=== PATIENT | male | born 1930 | race Caucasian/White ===

== ENCOUNTER 2020-08-10 15:21 | Inpatient (IN) | payer MEDICARE, OTHER ==
[~2020-08-10] VITALS: Ht 188 cm; Wt 80.1 kg
[2020-08-10 15:50] LABS: BASOPHILS % (AUTO) 0.3 % (0.0-5.0); EOSINOPHILS % (AUTO) 1.2 % (0.0-8.0); HEMATOCRIT 40.2 % (42-54); LYMPHOCYTES % (AUTO) 11.6 % (21.0-51.0); MEAN CORPUSCULAR HEMOGLOBIN 29.3 pg (27.0-33.0); MEAN CORPUSCULAR HGB CONC 31.1 g/dL (32.0-36.0); MEAN CORPUSCULAR VOLUME 94.4 fL (79-99); MONOCYTES % (AUTO) 11.9 % (3.0-13.0); PLATELET COUNT (AUTO) 175 K/uL (130-400); RED BLOOD CELL COUNT(AUTO) 4.26 MIL/uL (4.50-6.20); RED CELL DISTRIBUTION WIDTH 14.6 % (11.0-15.5); WHITE BLOOD COUNT (AUTO) 11.5 K/uL (4.8-10.8)
[2020-08-10 16:03] LABS: PROTHROMBIN TIME 10.9 SEC (9.6-11.6)
[2020-08-10 16:04] LABS: CREATININE 2.2 mg/dL (0.5-1.5); POTASSIUM 4.3 mmol/L (3.5-5.1)
[2020-08-10 16:09] LABS: ALBUMIN 3.3 g/dL (3.5-5.0); BILIRUBIN,TOTAL 0.4 mg/dL (0.2-1.0); TOTAL PROTEIN, SERUM 7.3 g/dL (6.0-8.3)
[2020-08-10 17:30] LABS: APPEARANCE,URINE Cloudy (CLEAR); BILIRUBIN,URINE Negative (NEGATIVE); COLOR,URINE Yellow (YELLOW); GLUCOSE, URINE (UA) Negative (NEGATIVE); KETONES,URINE Negative (NEGATIVE); LEUKOCYTE ESTERASE ,URINE Negative (NEGATIVE); NITRATE,URINE Negative (NEGATIVE); OCCULT BLOOD,URINE Moderate (NEGATIVE); PROTEIN,URINE POS 1+ mg/dL (NEGATIVE); UROBILINOGEN,URINE 0.2 mg/dL (0.2-1.0)
[2020-08-10 17:46] LABS: AMORPHOUS SEDIMENT,UR Few /LPF (None Seen); BACTERIA,URINE Rare /HPF (None Seen); HYALINE CASTS, URINE 0-1 /LPF (0-1 /LPF); SQUAMOUS EPITHELIAL CELL,UR None Seen /HPF (0-2); WBC,URINE 0-1 /HPF (0-1)
[2020-08-10] MEDS ORDERED: ASPIRIN 325 MG TABLET ONE (18:53)
[2020-08-10] MEDS ORDERED: NITROGLYCERIN 1GM OINT 1 INCH/1GM TD ONE (18:53)
[2020-08-10] MEDS ORDERED: ENOXAPARIN SODIUM 80 MG/0.8 ML SQ ONE (18:53)
[2020-08-10] MEDS ORDERED: NITROGLYCERIN 0.4 MG SL TAB SL PRN (21:00)
[2020-08-10] MEDS ORDERED: DiphenhydrAMINE HCL 50 MG/ML VIAL IV PRN (21:00)
[2020-08-10] MEDS ORDERED: DIPHENHYDRAMINE HCL 25 MG CAPSULE PO PRN (21:00)
[2020-08-10] MEDS ORDERED: LACTULOSE 20 GM/30 ML UDCUP PO PRN (21:00)
[2020-08-10] MEDS ORDERED: ONDANSETRON 4MG INJ IV PRN (21:00)
[2020-08-10] MEDS ORDERED: MAG/ALUM/SIMETH 30 ML UDCUP PO PRN (21:00)
[2020-08-10] MEDS ORDERED: ACETAMINOPHEN 325 MG TAB PO PRN ×2 (21:00)
[2020-08-10] MEDS ORDERED: FAMOTIDINE 20MG TAB ONE (22:43)
[2020-08-10] MEDS ORDERED: HEPARIN 5,000 UNIT VIAL ONE (22:43)
[2020-08-10] MEDS ORDERED: DOXYCYCLINE 100MG+NS 250ML 250 ML IV ONE (22:44)
[2020-08-10] MEDS ORDERED: CEFTRIAXONE 1G VIAL ONE (22:44)
[2020-08-10] MEDS ORDERED: METOPROLOL TARTRATE 25 MG TAB ONE (22:44)
[2020-08-11 01:26] LABS: AMPHET/METH SCREEN,URINE NEGATIVE (NEGATIVE); BARBITURATE SCREEN, URINE NEGATIVE (NEGATIVE); BENZODIAZEPINES SCREEN,URINE NEGATIVE (NEGATIVE); CANNABINOID SCREEN,URINE NEGATIVE (NEGATIVE); COCAINE SCREEN,URINE NEGATIVE (NEGATIVE); OPIATE SCREEN,URINE NEGATIVE (NEGATIVE); PHENCYCLIDINE SCREEN,URINE NEGATIVE (NEGATIVE)
[2020-08-11 04:01] LABS: PHOSPHORUS 3.4 mg/dL (2.5-4.9); THYROID STIMULATING HORMONE 1.29 uIU/mL (0.36-3.74)
[2020-08-11 04:03] LABS: AMMONIA < 10 umol/L (11-32)
[2020-08-11] MEDS ORDERED: HEPARIN 5,000 UNIT VIAL ONE (07:47)
[2020-08-11] MEDS ORDERED: ASPIRIN 325 MG TABLET ONE (07:47)
[2020-08-11] MEDS ORDERED: DOXYCYCLINE 100MG+NS 250ML 250 ML IV ONE ×2 (07:48→23:50)
[2020-08-11] MEDS ORDERED: METOPROLOL TARTRATE 25 MG TAB ONE (07:48)
[2020-08-11] MEDS ORDERED: ASPIRIN 325MG EC TAB PO SCH (09:00)
[2020-08-11] MEDS: DOXYCYCLINE 100MG+NS 250ML 250 ML IV SCH ×2 (09:00→21:00)
[2020-08-11 09:22] LABS: APPEARANCE,URINE CLEAR (CLEAR); BILIRUBIN,URINE NEGATIVE (NEGATIVE); COLOR,URINE YELLOW (YELLOW); GLUCOSE, URINE (UA) NEGATIVE (NEGATIVE); KETONES,URINE NEGATIVE (NEGATIVE); LEUKOCYTE ESTERASE ,URINE NEGATIVE (NEGATIVE); NITRATE,URINE NEGATIVE (NEGATIVE); OCCULT BLOOD,URINE SMALL (NEGATIVE); PH,URINE 5.5 (5.0-8.0); PROTEIN,URINE 30 mg/dL (NEGATIVE); UROBILINOGEN,URINE 0.2 mg/dL (0.2-1.0)
[2020-08-11 09:26] LABS: BASOPHILS % (AUTO) 0.2 % (0.0-5.0); HEMATOCRIT 40.4 % (42-54); LYMPHOCYTES % (AUTO) 4.4 % (21.0-51.0); MEAN CORPUSCULAR HEMOGLOBIN 29.5 pg (27.0-33.0); MEAN CORPUSCULAR HGB CONC 31.4 g/dL (32.0-36.0); MEAN CORPUSCULAR VOLUME 93.7 fL (79-99); MONOCYTES % (AUTO) 11.2 % (3.0-13.0); NEUTROPHILS % (AUTO) 82.8 % (40.0-77.0); PLATELET COUNT (AUTO) 172 K/uL (130-400); RED BLOOD CELL COUNT(AUTO) 4.31 MIL/uL (4.50-6.20); RED CELL DISTRIBUTION WIDTH 14.2 % (11.0-15.5); WHITE BLOOD COUNT (AUTO) 10.5 K/uL (4.8-10.8)
[2020-08-11 09:38] LABS: ALBUMIN 3.1 g/dL (3.5-5.0); BILIRUBIN,TOTAL 0.4 mg/dL (0.2-1.0); POTASSIUM 3.7 mmol/L (3.5-5.1); TOTAL PROTEIN, SERUM 7.1 g/dL (6.0-8.3)
[2020-08-11 09:40] LABS: WBC,URINE None Seen /HPF (0-1)
[2020-08-11 09:41] LABS: BACTERIA,URINE Few /HPF (None Seen); SQUAMOUS EPITHELIAL CELL,UR 0-2 /HPF (0-2)
[2020-08-11 16:00] VITALS: BP 161/80
[2020-08-11] MEDS ORDERED: ASPI-1012 PO (17:00)
[2020-08-11] MEDS ORDERED: LEVO125C4 PO (17:00)
[2020-08-11] MEDS ORDERED: NIAC500T22 PO (17:00)
[2020-08-11] MEDS ORDERED: PRAV40TA3 PO (17:00)
[2020-08-11] MEDS ORDERED: SAW160CA3 PO (17:00)
[2020-08-11] MEDS ORDERED: METF-526 PO (17:00)
[2020-08-11] MEDS ORDERED: OMEP20TA25 PO (17:00)
[2020-08-11 20:00] VITALS: BP 138/78
[2020-08-11] MEDS: METOPROLOL TARTRATE 25 MG TAB PO SCH ×2 (21:00→21:21)
[2020-08-11] MEDS: FAMOTIDINE 20MG TAB PO SCH ×2 (21:00→21:21)
[2020-08-11] MEDS: HEPARIN 5,000 UNIT VIAL SQ SCH ×2 (21:00→21:26)
[2020-08-11] MEDS: CEFTRIAXONE 1G VIAL IV SCH ×2 (21:00→21:21)
[2020-08-12] VITALS: BP 155/83
[2020-08-12] MEDS ORDERED: LORAZEPAM 2 MG/ML 1 ML VIAL ONE (00:05)
[2020-08-12] MEDS: DOXYCYCLINE 100MG+NS 250ML 250 ML IV SCH ×3 (00:08→20:29)
[2020-08-12] MEDS ORDERED: LORAZEPAM 2 MG/ML 1 ML VIAL IM ONE (00:15)
[2020-08-12 04:00] VITALS: BP 123/74
[2020-08-12 05:57] LABS: BASOPHILS % (AUTO) 0.7 % (0.0-5.0); EOSINOPHILS % (AUTO) 3.1 % (0.0-8.0); HEMATOCRIT 40.9 % (42-54); LYMPHOCYTES % (AUTO) 14.2 % (21.0-51.0); MEAN CORPUSCULAR HEMOGLOBIN 29.7 pg (27.0-33.0); MEAN CORPUSCULAR HGB CONC 31.5 g/dL (32.0-36.0); MONOCYTES % (AUTO) 13.1 % (3.0-13.0); NEUTROPHILS % (AUTO) 67.7 % (40.0-77.0); PLATELET COUNT (AUTO) 184 K/uL (130-400); RED BLOOD CELL COUNT(AUTO) 4.35 MIL/uL (4.50-6.20); RED CELL DISTRIBUTION WIDTH 14.2 % (11.0-15.5); WHITE BLOOD COUNT (AUTO) 7.6 K/uL (4.8-10.8)
[2020-08-12 06:20] LABS: BILIRUBIN,TOTAL 0.4 mg/dL (0.2-1.0); CREATININE 1.8 mg/dL (0.5-1.5); MAGNESIUM 2.3 mg/dL (1.80-2.40); PHOSPHORUS 2.9 mg/dL (2.5-4.9); POTASSIUM 3.8 mmol/L (3.5-5.1)
[2020-08-12 08:00] VITALS: BP 141/80
[2020-08-12] MEDS: HEPARIN 5,000 UNIT VIAL SQ SCH ×3 (09:00→20:34)
[2020-08-12] MEDS ORDERED: Vitamin B Complex/Vit C/Folic Acid PO SCH (09:00)
[2020-08-12] MEDS: METOPROLOL TARTRATE 25 MG TAB PO SCH ×3 (09:00→20:30)
[2020-08-12] MEDS ORDERED: ASPIRIN 325MG EC TAB PO SCH (09:00)
[2020-08-12 11:00] VITALS: BP 163/73
[2020-08-12] MEDS: ASPIRIN 325MG EC TAB PO SCH (11:42)
[2020-08-12 16:00] VITALS: BP 136/71
[2020-08-12 20:25] VITALS: BP 154/77
[2020-08-12] MEDS: CEFTRIAXONE 1G VIAL IV SCH (20:29)
[2020-08-12] MEDS: FAMOTIDINE 20MG TAB PO SCH (20:30)
[2020-08-12] MEDS ORDERED: LORAZEPAM 0.5 MG TABLET PO PRN (22:00)
[2020-08-13 00:11] VITALS: BP 154/89
[2020-08-13 04:05] LABS: EOSINOPHILS % (AUTO) 4.6 % (0.0-8.0); HEMATOCRIT 40.4 % (42-54); MEAN CORPUSCULAR HGB CONC 30.9 g/dL (32.0-36.0); MEAN CORPUSCULAR VOLUME 93.7 fL (79-99); MONOCYTES % (AUTO) 13.4 % (3.0-13.0); NEUTROPHILS % (AUTO) 57.2 % (40.0-77.0); PLATELET COUNT (AUTO) 206 K/uL (130-400); RED BLOOD CELL COUNT(AUTO) 4.31 MIL/uL (4.50-6.20); RED CELL DISTRIBUTION WIDTH 14.2 % (11.0-15.5); WHITE BLOOD COUNT (AUTO) 6.3 K/uL (4.8-10.8)
[2020-08-13 04:18] VITALS: BP 153/93
[2020-08-13 04:27] LABS: ALBUMIN 2.8 g/dL (3.5-5.0); BILIRUBIN,TOTAL 0.3 mg/dL (0.2-1.0); CREATININE 1.7 mg/dL (0.5-1.5); POTASSIUM 3.9 mmol/L (3.5-5.1); TOTAL PROTEIN, SERUM 6.8 g/dL (6.0-8.3)
[2020-08-13 07:00] VITALS: BP 156/92
[2020-08-13] MEDS: DOXYCYCLINE 100MG+NS 250ML 250 ML IV SCH ×3 (09:00→20:21)
[2020-08-13] MEDS: METOPROLOL TARTRATE 25 MG TAB PO SCH ×2 (09:27→20:22)
[2020-08-13] MEDS: ASPIRIN 325MG EC TAB PO SCH (09:27)
[2020-08-13] MEDS: HEPARIN 5,000 UNIT VIAL SQ SCH ×2 (09:37→20:28)
[2020-08-13 11:45] VITALS: BP 149/80
[2020-08-13 16:00] VITALS: BP 155/86
[2020-08-13 20:00] VITALS: BP 160/90
[2020-08-13] MEDS: CEFTRIAXONE 1G VIAL IV SCH (20:21)
[2020-08-13] MEDS: FAMOTIDINE 20MG TAB PO SCH (22:00)
[2020-08-14 00:06] VITALS: BP 163/93
[2020-08-14 03:45] VITALS: BP 131/89
[2020-08-14 06:02] LABS: BASOPHILS % (AUTO) 1.2 % (0.0-5.0); EOSINOPHILS % (AUTO) 3.7 % (0.0-8.0); HEMATOCRIT 44.4 % (42-54); MEAN CORPUSCULAR HEMOGLOBIN 28.9 pg (27.0-33.0); MEAN CORPUSCULAR HGB CONC 31.3 g/dL (32.0-36.0); MEAN CORPUSCULAR VOLUME 92.3 fL (79-99); MONOCYTES % (AUTO) 13.2 % (3.0-13.0); NEUTROPHILS % (AUTO) 58.9 % (40.0-77.0); PLATELET COUNT (AUTO) 233 K/uL (130-400); RED BLOOD CELL COUNT(AUTO) 4.81 MIL/uL (4.50-6.20); WHITE BLOOD COUNT (AUTO) 6.4 K/uL (4.8-10.8)
[2020-08-14 06:10] LABS: ALBUMIN 3.1 g/dL (3.5-5.0); BILIRUBIN,TOTAL 0.4 mg/dL (0.2-1.0); CREATININE 1.7 mg/dL (0.5-1.5); POTASSIUM 4.1 mmol/L (3.5-5.1); TOTAL PROTEIN, SERUM 7.3 g/dL (6.0-8.3)
[2020-08-14 07:00] VITALS: BP 164/86
[2020-08-14] MEDS: DOXYCYCLINE 100MG+NS 250ML 250 ML IV SCH ×2 (09:32→20:08)
[2020-08-14] MEDS: ASPIRIN 325MG EC TAB PO SCH (09:32)
[2020-08-14] MEDS: METOPROLOL TARTRATE 25 MG TAB PO SCH ×2 (09:32→20:08)
[2020-08-14] MEDS: HEPARIN 5,000 UNIT VIAL SQ SCH ×2 (09:35→20:20)
[2020-08-14 11:30] VITALS: BP 156/79
[2020-08-14 16:00] VITALS: BP 157/90
[2020-08-14 19:38] VITALS: BP 166/92
[2020-08-14] MEDS: CEFTRIAXONE 1G VIAL IV SCH (20:08)
[2020-08-14] MEDS: FAMOTIDINE 20MG TAB PO SCH (20:08)
[2020-08-15 03:52] VITALS: BP 132/69
[2020-08-15 05:58] LABS: BASOPHILS % (AUTO) 1.4 % (0.0-5.0); EOSINOPHILS % (AUTO) 4.9 % (0.0-8.0); HEMATOCRIT 43.9 % (42-54); MEAN CORPUSCULAR HEMOGLOBIN 29.1 pg (27.0-33.0); MEAN CORPUSCULAR HGB CONC 31.4 g/dL (32.0-36.0); MEAN CORPUSCULAR VOLUME 92.4 fL (79-99); MONOCYTES % (AUTO) 12.7 % (3.0-13.0); NEUTROPHILS % (AUTO) 51.9 % (40.0-77.0); PLATELET COUNT (AUTO) 234 K/uL (130-400); RED BLOOD CELL COUNT(AUTO) 4.75 MIL/uL (4.50-6.20); WHITE BLOOD COUNT (AUTO) 7.3 K/uL (4.8-10.8)
[2020-08-15 06:20] LABS: CREATININE 1.7 mg/dL (0.5-1.5)
[2020-08-15 07:00] VITALS: BP 152/80
[2020-08-15] MEDS: ASPIRIN 81MG CHEW TAB PO SCH (08:37)
[2020-08-15] MEDS: METOPROLOL TARTRATE 25 MG TAB PO SCH ×2 (08:37→23:50)
[2020-08-15] MEDS: DOXYCYCLINE 100MG+NS 250ML 250 ML IV SCH (08:37)
[2020-08-15] MEDS: HEPARIN 5,000 UNIT VIAL SQ SCH (08:42)
[2020-08-15] MEDS ORDERED: CLOPIDOGREL 75MG TAB PO SCH (09:00)
[2020-08-15 11:30] VITALS: BP 150/81
[2020-08-15 16:00] VITALS: BP 120/70
[2020-08-15 20:00] VITALS: BP 127/76
[2020-08-15] MEDS: FAMOTIDINE 20MG TAB PO SCH (23:49)
[2020-08-16] VITALS (7 sets, daily range): BP systolic 113–143; BP diastolic 64–73
[2020-08-16 06:38] LABS: CREATININE 1.9 mg/dL (0.5-1.5); POTASSIUM 3.9 mmol/L (3.5-5.1)
[2020-08-16] MEDS: METOPROLOL TARTRATE 25 MG TAB PO SCH ×2 (11:17→22:44)
[2020-08-16] MEDS: ASPIRIN 81MG CHEW TAB PO SCH (11:17)
[2020-08-16] MEDS: HEPARIN 5,000 UNIT VIAL SQ SCH ×3 (12:02→21:00)
[2020-08-16] MEDS: FAMOTIDINE 20MG TAB PO SCH (22:43)
[2020-08-17 00:30] VITALS: BP 159/57
[2020-08-17 03:50] VITALS: BP 135/74
[2020-08-17 03:56] LABS: HEMATOCRIT 39.5 % (42-54); MEAN CORPUSCULAR HEMOGLOBIN 28.7 pg (27.0-33.0); MEAN CORPUSCULAR HGB CONC 31.4 g/dL (32.0-36.0); MEAN CORPUSCULAR VOLUME 91.4 fL (79-99); PLATELET COUNT (AUTO) 235 K/uL (130-400); RED BLOOD CELL COUNT(AUTO) 4.32 MIL/uL (4.50-6.20); WHITE BLOOD COUNT (AUTO) 8.6 K/uL (4.8-10.8)
[2020-08-17 04:08] LABS: BILIRUBIN,TOTAL 0.4 mg/dL (0.2-1.0); CREATININE 1.9 mg/dL (0.5-1.5); POTASSIUM 3.9 mmol/L (3.5-5.1); TOTAL PROTEIN, SERUM 6.5 g/dL (6.0-8.3)
[2020-08-17 04:15] LABS: BAND NEUTROPHILS % (MANUAL) 1 % (0-2); EOSINOPHILS % (MANUAL) 4 % (1-6); LYMPHOCYTES % (MANUAL) 25 % (22-44); MONOCYTES % (MANUAL) 10 % (2-9); SEGMENTED NEUTROPHILS % 60 % (40-70)
[2020-08-17 04:17] LABS: MAN.DIFF COMMENT-IMPRESSION MANUAL DIFFERENTIAL
[2020-08-17 08:39] VITALS: BP 145/60
[2020-08-17 11:28] VITALS: BP 138/70
[2020-08-17] MEDS: ASPIRIN 81MG CHEW TAB PO SCH (12:47)
[2020-08-17] MEDS: METOPROLOL TARTRATE 25 MG TAB PO SCH ×2 (12:49→22:43)
[2020-08-17] MEDS: HEPARIN 5,000 UNIT VIAL SQ SCH ×2 (12:55→22:52)
[2020-08-17 16:46] VITALS: BP 130/70
[2020-08-17] MEDS: FAMOTIDINE 20MG TAB PO SCH (22:43)
[2020-08-17 23:58] VITALS: BP 123/74
[2020-08-18 04:33] VITALS: BP 136/68
[2020-08-18 06:26] LABS: HEMATOCRIT 41.6 % (42-54); MEAN CORPUSCULAR HEMOGLOBIN 28.5 pg (27.0-33.0); RED BLOOD CELL COUNT(AUTO) 4.52 MIL/uL (4.50-6.20); RED CELL DISTRIBUTION WIDTH 14.1 % (11.0-15.5); WHITE BLOOD COUNT (AUTO) 7.5 K/uL (4.8-10.8)
[2020-08-18 06:32] LABS: CREATININE 1.9 mg/dL (0.5-1.5); POTASSIUM 4.1 mmol/L (3.5-5.1)
[2020-08-18 07:00] VITALS: BP 142/82
[2020-08-18] MEDS: METOPROLOL TARTRATE 25 MG TAB PO SCH (09:31)
[2020-08-18] MEDS: ASPIRIN 81MG CHEW TAB PO SCH (09:31)
[2020-08-18] MEDS: HEPARIN 5,000 UNIT VIAL SQ SCH (09:36)
[2020-08-18 11:00] VITALS: BP 110/70
[2020-08-18] MEDS ORDERED: METO25TA6 PO (12:32)
[2020-08-18] MEDS ORDERED: ASPI-1443 PO (12:33)
[2020-08-18 15:00] VITALS: BP 135/68
== END 2020-08-18 20:15 | DRG 177 ==
LOC: EDH 15:21 → EDHIP 20:46 → 4DH 08-11 15:00
PROVIDERS: ADMIT Family Medicine; ATTEND Family Medicine
DX: J15.6 Pneumonia due to other Gram-negative bacteria (principal); G93.41 Metabolic encephalopathy; N17.9 Acute kidney failure, unspecified; J98.11 Atelectasis; I45.10 Unspecified right bundle-branch block; N18.9 Chronic kidney disease, unspecified; Z60.2 Problems related to living alone; Z66 Do not resuscitate; R29.6 Repeated falls; E03.9 Hypothyroidism, unspecified; E78.5 Hyperlipidemia, unspecified; J44.9 Chronic obstructive pulmonary disease, unspecified; D64.9 Anemia, unspecified; I25.10 Atherosclerotic heart disease of native coronary artery without angina pectoris; E11.22 Type 2 diabetes mellitus with diabetic chronic kidney disease; I12.9 Hypertensive chronic kidney disease with stage 1 through stage 4 chronic kidney disease, or unspecified chronic kidney disease; G31.9 Degenerative disease of nervous system, unspecified; R53.81 Other malaise; I48.91 Unspecified atrial fibrillation; Z96.651 Presence of right artificial knee joint; Z98.42 Cataract extraction status, left eye; Z98.41 Cataract extraction status, right eye; Z95.5 Presence of coronary angioplasty implant and graft; Z85.46 Personal history of malignant neoplasm of prostate; Z79.02 Long term (current) use of antithrombotics/antiplatelets; Z79.82 Long term (current) use of aspirin; Z82.49 Family history of ischemic heart disease and other diseases of the circulatory system; I66.8 Occlusion and stenosis of other cerebral arteries
CPT/HCPCS: 36415; 70450; 70544; 70547; 70551; 71045; 71250; 76770; 80048; 80053; 80305; 81001; 82140; 82607; 82746; 82948; 83605; 83735; 84100; 84145; 84443; 84484; 85025; 85027; 85610; 85730; 87040; 92526; 92610; 93005; 93880; 97039; C8929; G0378; J0696; J1644; J1650; J2060; J3490